=== PATIENT | female | born 1990 | race Two or more races ===

== ENCOUNTER 2017-05-26 02:02 | Emergency (ER) | payer MEDICAID ==
[~2017-05-26] VITALS: Ht 157.5 cm; Wt 105.2 kg
[~2017-05-26 02:02] MED LIST: ALBUTEROL SULF8.5 GM INH; CIPROFLOXACIN500 M2 ORAL; psych med
[2017-05-26 02:15] VITALS: BP 136/89
--- NOTE | 2017-05-26 02:21 | Emergency Room Report ---
History of Present Illness General Chief Complaint: Medical Clearance Source: Patient Present Illness HPI This is a 26-year-old female with history of asthma and psychiatric history. She was in senior care for theft. Said that she's coughing and asthma is acting up. She was brought here he evaluated. She also claimed that she is suicidal and hearing voices. Denies any other complaint. No nausea no vomiting. No fever or chills. Allergies: Coded Allergies: AMOXICILLIN (Verified Allergy, 01/28/14) DIPHENHYDRAMINE (Verified Allergy, 01/28/14) LATEX (Verified Allergy, 01/28/14) PENICILLINS (Verified Allergy, 01/28/14) Patient History Past Medical History: see triage record, old chart reviewed, asthma Past Surgical History: none Pertinent Family History: none Social History: Denies: smoking Last Menstrual Period: unk Now: No Immunizations: other Reviewed Nursing Documentation: PMH: Agreed, PSxH: Agreed Nursing Documentation-PMH Hx Asthma: Yes Review of Systems Eye: Denies: blurred vision, eye pain ENT: Denies: ear pain, nose congestion, throat swelling Respiratory: Denies: cough, shortness of breath Cardiovascular: Denies: chest pain, palpitations Gastrointestinal: Denies: abdominal pain, diarrhea, nausea, vomiting Musculoskeletal: Denies: back pain, joint pain Skin: Denies: rash Neurological: Denies: headache, numbness Endocrine: Denies: increased thirst, increased urine Hematologic/Lymphatic: Denies: easy bruising All Other Systems: negative except mentioned in HPI Physical Exam Vital Signs Date Time Temp Pulse Resp B/P Pulse Ox O2 Delivery O2 Flow Rate FiO2 05/26/17 02:10 98.4 85 16 136/89 98 Room Air vitals normal Sp02 EP Interpretation: reviewed, normal General Appearance: well appearing, no apparent distress, alert, obese Head: normocephalic, atraumatic Eyes: bilateral eye EOMI, bilateral eye PERRL ENT: hearing grossly normal, normal pharynx Neck: full range of motion, supple, no meningismus Respiratory: chest non-tender, lungs clear, normal breath sounds, other - Lungs are clear. Patient talking without any difficulty. When I examine her she forcefully coughing. Cardiovascular #1: regular rate, rhythm, no murmur Gastrointestinal: normal bowel sounds, non tender, no mass, no organomegaly, no bruit, non-distended Musculoskeletal: back normal, gait/station normal, normal range of motion Psychiatric: mood/affect normal Skin: warm/dry Medical Decision Making Diagnostic Impression: Primary Impression: Morbid obesity with BMI of 40.0-44.9, adult Additional Impression: Asthma Qualified Codes: J45.909 - Unspecified asthma, uncomplicated ER Course patient here for medical clearance.No wheezing. No rest or distress. We'll discharge to police clerk. Last Vital Signs Date Time Temp Pulse Resp B/P Pulse Ox O2 Delivery O2 Flow Rate FiO2 05/26/17 02:10 98.4 85 16 136/89 98 Room Air Status: unchanged Disposition: D/C TO LAW ENFORCEMENT IN [facility] Condition: Stable Additional Instructions: Followup with your doctor as needed in 7 days. Return if worse. NIKITA LOCKE M.D. May 26, 2017 02:21
[2017-05-26 02:25] VITALS: BP 136/89
== END 2017-05-26 04:00 ==
LOC: EMR 02:31
DX: J45.909 Unspecified asthma, uncomplicated (principal); E66.01 Morbid (severe) obesity due to excess calories; Z68.41 Body mass index [BMI] 40.0-44.9, adult; R45.851 Suicidal ideations; R44.0 Auditory hallucinations; Z88.0 Allergy status to penicillin; Z91.040 Latex allergy status; Z88.8 Allergy status to other drugs, medicaments and biological substances
CPT/HCPCS: 99282